=== PATIENT | male | born 1955 | race Caucasian/White ===

== ENCOUNTER 2017-08-13 23:02 | Inpatient (IN) | payer BC ==
[~2017-08-13] VITALS: Ht 188 cm; Wt 163.0 kg
[~2017-08-13 23:02] MED LIST: AMLODIPINE BESY10 MG PO; ATORVASTATIN CA80 MG PO; DIOVAN320 MG PO; EFFIENT10 MG PO; GLUCOPHAGE1000 MG PO; GLYBURIDE5 MG PO; IRON325 M1 PO; LO-DOSE ASPIRIN81 M2 PO; LOPRESSOR25 MG PO; NITROSTAT0.4 MG SL; RED YEAST RICE600 M1 PO; VITAMIN B-121000 MC3 PO; VITAMIN D31000 UNIT PO
[2017-08-14 06:10] VITALS: BP 170/90
[2017-08-14 11:16] VITALS: BP 121/72
[2017-08-14 15:42] VITALS: BP 134/67
[2017-08-14 19:51] VITALS: BP 144/72
[2017-08-14 23:38] VITALS: BP 139/76
[2017-08-15 04:17] VITALS: BP 142/61
[2017-08-15 06:22] LABS: HEMATOCRIT 34.5 % (38.0-50.0); MCV 90.3 FL (86-99)
[2017-08-15 06:23] LABS: HEMOGLOBIN 11.5 G/DL (12.5-16.6)
[2017-08-15 06:43] LABS: CHLORIDE 105 MEQ/L (99-109); GFR ESTIMATE (CALCULATED) > 59 mL/min/ (58.99-99999); GLUCOSE 175 mg/dL (70-99); POTASSIUM 4.6 MEQ/L (3.7-5.4); SODIUM 137 MEQ/L (136-147); UREA NITROGEN (BUN) 14 mg/dL (9-23)
[2017-08-15 08:00] VITALS: BP 132/66
[2017-08-15 09:00] VITALS: BP 114/57
[2017-08-15 12:21] VITALS: BP 133/68
[2017-08-15 15:55] VITALS: BP 116/62
[2017-08-15 20:03] VITALS: BP 125/58
[2017-08-16] VITALS (8 sets, daily range): BP systolic 111–133; BP diastolic 54–63
[2017-08-16 05:51] LABS: HEMATOCRIT 33.9 % (38.0-50.0); HEMOGLOBIN 11.2 G/DL (12.5-16.6); MCV 90.4 FL (86-99)
[2017-08-16] MEDS ORDERED: OXYCODONE HCL5 MG PO (08:35)
[2017-08-16] MEDS ORDERED: ELIQUIS2.5 MG PO (08:35)
[2017-08-16] MEDS ORDERED: GABAPENTIN100 MG PO (08:35)
[2017-08-16] MEDS ORDERED: CELECOXIB200 MG PO (08:35)
[2017-08-17 07:28] VITALS: BP 127/60
[2017-08-17 15:38] VITALS: BP 160/77
== END 2017-08-17 18:30 | DRG 470 ==
LOC: ENRESERV 23:02 → 2SOUTH 08-14 05:35 → 3EAST 08-14 05:35 → 3WEST 08-14 05:35 → 2SOUTH 08-14 13:05 → 3WEST 08-16 10:21 → ENRESERV 08-16 10:32 → 3EAST 08-16 18:30
PROVIDERS: Orthopaedic Surgery
PROC: 0SRC0J9 Replacement of Right Knee Joint with Synthetic Substitute, Cemented, Open Approach (ICD-10-PCS; principal; 2017-08-14)
DX: M17.11 Unilateral primary osteoarthritis, right knee (principal); Z68.42 Body mass index [BMI] 45.0-49.9, adult; I25.2 Old myocardial infarction; I10 Essential (primary) hypertension; E66.9 Obesity, unspecified
CPT/HCPCS: 71045; 80048; 82948; 85014; 85018; 97530 GP; C1713; J0690; J1815; J1885; J2250; J2405; J2795; J7030; J7050; S0020